=== PATIENT | female | born 1965 | race Caucasian/White ===

== ENCOUNTER 2016-08-21 06:57 | Emergency (ER) | payer SELFPAY ==
[~2016-08-21] VITALS: Ht 182.9 cm; Wt 90.8 kg
[2016-08-21] MEDS ORDERED: TETANUS, DIPTHERIA, PERTUSSIS (ADACELL) VACCINE 0.5 ML VIAL IM ONE (07:20)
[2016-08-21] MEDS ORDERED: BACITRACIN OINTMENT 0.9 GM PACKET TOP ONE (07:20)
[2016-08-21 07:59] VITALS: BP 181/93
--- NOTE | 2016-08-21 08:08 | NUR ---
pts wound was infected, unable to suture, states her boyfriend told her not to come in, instructed pt on woumd care and watching for signs and symptoms that wound looks worse and to follow up with her pcp
== END 2016-08-21 08:05 | disposition home or self-care (01) ==
LOC: ED 06:59
DX: S51.012A Laceration without foreign body of left elbow, initial encounter (principal); L08.9 Local infection of the skin and subcutaneous tissue, unspecified; W10.9XXA Fall (on) (from) unspecified stairs and steps, initial encounter; Y92.008 Other place in unspecified non-institutional (private) residence as the place of occurrence of the external cause
CPT/HCPCS: 73080; 90471; 90715; 99283

== ENCOUNTER 2016-10-10 15:07 | Emergency (ER) | payer SELFPAY ==
[~2016-10-10] VITALS: Ht 182.9 cm; Wt 88.0 kg
--- NOTE | 2016-10-10 15:36 | NUR ---
LT ELBOW SWELLING NOTED APPX 3 CM. CL
[2016-10-10 16:07] VITALS: BP 161/95
== END 2016-10-10 16:04 | disposition home or self-care (01) ==
LOC: ED 15:09
DX: S51.012D Laceration without foreign body of left elbow, subsequent encounter (principal); L03.114 Cellulitis of left upper limb; W10.9XXD Fall (on) (from) unspecified stairs and steps, subsequent encounter; Y92.009 Unspecified place in unspecified non-institutional (private) residence as the place of occurrence of the external cause
CPT/HCPCS: 99282; 99283